=== PATIENT | female | born 1975 | race Caucasian/White ===

== ENCOUNTER 2025-10-01 01:27 | Emergency (ER) | payer OTHER ==
[2025-10-01 02:08] LABS: Hematocrit 42.8 % (36.0-47.0); Hemoglobin 13.8 g/dL (12.0-16.0); MDiff Complete? YES; Mean Corpuscular Hemoglobin 27.8 pg (27.0-31.0); Mean Corpuscular Volume 86.3 fl (78.0-98.0); Platelet Count 457 10x3/uL (130-400); Red Blood Cell (RBC) Count 4.96 mill/uL (4.20-5.40); White Blood Cell (WBC) Count 10.6 10x3/uL (4.8-10.8)
[2025-10-01 02:19] LABS: ALT (SGPT) 11 U/L (Less than 34); AST (SGOT) 21 U/L (11-34); Albumin 4.3 g/dL (3.1-4.5); Alkaline Phosphatase 104 U/L (40-110); Anion Gap 16 mmol/L (10-20); BUN (Urea Nitrogen) 9 mg/dL (7.0-18.7); Bilirubin, Total 0.3 mg/dL (0.3-1.2); Calc. Creatinine Clearance 0 mL/min (70-130); Calcium 9.3 mg/dL (7.8-10.44); Carbon Dioxide 24 mmol/L (22-29); Chloride 106 mmol/L (98-107); Globulin 3.2 g/dL (2.4-3.5); Glucose 102 mg/dL (70-105); Lipase 32 U/L (8-78); Potassium 4.1 mmol/L (3.5-5.1); Sodium 142 mmol/L (136-145)
[2025-10-01 02:25] LABS: Troponin I Less than 0.010 ng/mL (< 0.028)
[2025-10-01 02:47] LABS: CAUTI Indications for Culture Dysuria,urgency,freq; Glucose, Urine (Dipstick) Negative (Negative); Leukocyte Trace (Negative); Protein, Urine (Dipstick) Negative (Neg-Trace); RBC/HPF 0-3 HPF (0-3); Specific Gravity, Urine 1.010 (1.005-1.030); WBC/HPF 0-3 HPF (0-3)
[2025-10-01 02:48] LABS: Urine Culture Reflex No No
== END 2025-10-01 04:36 | disposition home or self-care (01) ==
LOC: MADERS 01:27
DX: R55 Syncope and collapse (principal); E03.9 Hypothyroidism, unspecified; K21.9 Gastro-esophageal reflux disease without esophagitis; Z79.890 Hormone replacement therapy
CPT/HCPCS: 70450; 71275; 80053; 81001; 83690; 84484; 85025; 85379; 93005; 96360